=== PATIENT | male | born 1965 | race American Indian/Alaskan Native ===

== ENCOUNTER 2018-04-14 18:47 | Emergency (ER) | payer MEDICAID ==
[2018-04-14 18:50] VITALS: BMI 21.7
--- NOTE | 2018-04-14 18:57 | ED PDOC ---
Arrival/HPI - General Chief Complaint: Substance Abuse Time Seen by Provider: 04/14/18 18:49 Historian: Patient, EMS, Police - History of Present Illness Narrative History of Present Illness (Text): 04/14/18 18:54 53 year old male, no significant pmh, nkda, who presents to the emergency department via EMS and [employer] police s/p abnormal behavior and agitation. Police report that patient was agitated, dancing, screaming, and hitting himself in public which the bystander called for the police. Police arrived and found the patient agitated which the EMS dispatched, patient continued to scream and hit his head against the stretcher in the ambulance but stopped in the ER. Patient denies any fever, chills, chest pain, shortness of breath, nausea, vomiting, diarrhea, back pain, neck pain, headache, dizziness, suicidal/homicidal ideation or any other complaints. Time/Duration: Prior to Arrival Symptom Course: Unchanged Context: Street Past Medical History - Provider Review Nursing Documentation Reviewed: Yes - Infectious Disease Hx of Infectious Diseases: None - Musculoskeletal/Rheumatological Other/Comment: R knee arthroscopy - Psychiatric Hx Substance Use: Yes - Surgical History Other/Comment: R knee arthroscopy - Anesthesia Hx Anesthesia: Yes Hx Anesthesia Reactions: No Hx Malignant Hyperthermia: No Family/Social History - Physician Review Nursing Documentation Reviewed: Yes Family/Social History: Unknown Family HX Smoking Status: Unknown If Ever Smoked Hx Alcohol Use: No Hx Substance Use: Yes Substance used: heroine Allergies/Home Meds Allergies/Adverse Reactions: Allergies No Known Allergies Allergy (Verified 04/14/18 18:51) Review of Systems - Review of Systems Constitutional: absent: Fatigue, Fevers Eyes: absent: Vision Changes ENT: absent: Hearing Changes Respiratory: absent: SOB, Cough Cardiovascular: absent: Chest Pain Gastrointestinal: absent: Abdominal Pain, Nausea, Vomiting Musculoskeletal: absent: Arthralgias, Back Pain, Neck Pain, Myalgias Skin: absent: Rash, Pruritis Neurological: absent: Headache, Dizziness Psychiatric: Other (+agitation). absent: Anxiety, Depression, Suicidal Ideation Physical Exam Vital Signs Temp Pulse Resp BP Pulse Ox 04/14/18 19:20 68 16 142/58 L 99 04/14/18 19:15 98.1 F - Systems Exam Head: Present: Atraumatic, Normocephalic, Other (no facial bony tenderness or swelling. ). No: Tenderness, Contusion, Swelling, Ecchymosis, Abrasion, Laceration Pupils: Present: PERRL Extroacular Muscles: Present: EOMI Conjunctiva: Present: Normal Ears: Present: NORMAL TM, Normal Canal. No: Erythema Mouth: Present: Moist Mucous Membranes Pharnyx: Present: Normal. No: ERYTHEMA, EXUDATE, TONSILS ENLARGED Nose (External): Present: Atraumatic. No: Abrasion, Contusion, Laceration Nose (Internal): Present: Normal Inspection, No Active Bleeding. No: Rhinorrhea , Septal Hematoma, Epistaxis Neck: Present: Normal Range of Motion, Trachea Midline. No: Meningeal Signs, MIDLINE TENDERNESS, Paraspinal Tenderness, Lymphadenopathy Respiratory/Chest: Present: Clear to Auscultation, Good Air Exchange. No: Respiratory Distress, Accessory Muscle Use Cardiovascular: Present: Regular Rate and Rhythm, Normal S1, S2. No: Murmurs Abdomen: No: Tenderness, Distention, Peritoneal Signs, Rebound, Guarding Back: Present: Normal Inspection. No: Midline Tenderness, Paraspinal Tenderness Upper Extremity: Present: Normal Inspection, Normal ROM, NORMAL PULSES, Capillary Refill < 2s, Norm 2-Pt Discrimination. No: Cyanosis, Edema, Deformity Lower Extremity: Present: Normal Inspection, NORMAL PULSES, Normal ROM, Capillary Refill < 2 s. No: Edema, Deformity Neurological: Present: GCS=15, CN II-XII Intact, Speech Normal, Motor Func Grossly Intact, Memory Normal Skin: Present: Warm, Dry, Normal Color. No: Rashes Psychiatric: Present: Alert, Oriented x 3, Normal Insight, Normal Concentration Medical Decision Making ED Course and Treatment: 04/14/18 18:57 Differentia: ICH vs. Electrolyte imbalance vs. Intoxication vs. Psychosis -Labs/UA/UDS -CT head -Restrains (soft) as he is flight risk and not medically clear yet. -Observe and reassess 04/14/18 20:08 -CT Head show no acute findings -Labs are non-significant except Mg 1.6 (Mg 1gm IV ordred), BUN 24 (fluid ordered) -UA show mild UTI -Alcohol within normal limit -UDS show +opiate and +cocaine -Case discussed with Dr. Downey, agreed this patient needs psychiatric evaluation and can't sign out AMA -Pt. is medically clear and stable for the psychiatric evaluation -PES paged 04/14/18 22:00 -Pt. evaluated by the PES Alex, discussed the case with the psychiatrist laborer prestressed concrete. As per PES screener and psychiatric department, pt. is psychiatrically clear. -Pt. is calmed now, not agitated, effect of the cocaine stimulant effect appear to be overed, no signs of withdrawal. -Discharge home with macrobid, education on avoid using cocaine or any other drug in pubic, return to the ER for any new or worsening signs or symptoms. - Lab Interpretations Lab Results: 04/14/18 19:12 04/14/18 19:12 Lab Results 04/14/18 19:12: Alcohol, Quantitative < 10 04/14/18 19:12: Salicylates < 1 L, Acetaminophen < 10.0 L 04/14/18 19:12: Urine Opiates Screen Positive H, Urine Methadone Screen Negative , Ur Barbiturates Screen Negative, Ur Phencyclidine Scrn No result, Ur Amphetamines Screen Negative, U Benzodiazepines Scrn Negative, U Oth Cocaine Metabols Positive H, U Cannabinoids Screen Negative 04/14/18 19:12: Sodium 147, Potassium 4.3, Chloride 106, Carbon Dioxide 31, Anion Gap 14, BUN 24 H, Creatinine 1.3, Est GFR ( Amer) > 60, Est GFR ( Non-Af Amer) 58, Random Glucose 87, Calcium 9.1, Magnesium 1.6 L, Total Bilirubin 0.4, AST 26, ALT 31, Alkaline Phosphatase 46, Total Creatine Kinase 247 H, CK-MB (CK-2) 2.6, CK-MB (CK-2) % Cancelled, Total Protein 7.0, Albumin 4.0, Globulin 3.0, Albumin/Globulin Ratio 1.3 04/14/18 19:12: Urine Color Light yellow, Urine Appearance Clear, Urine pH 6.0, Ur Specific [place] >= 1.030, Urine Protein 30 H, Urine Glucose (UA) Negative, Urine Ketones Trace H, Urine Blood Negative, Urine Nitrate Negative, Urine Bilirubin Negative, Urine Urobilinogen 0.2, Ur Leukocyte Esterase Small H, Urine RBC 0 - 2, Urine WBC 2 - 5, Ur Epithelial Cells None, Urine Bacteria Trace 04/14/18 19:12: WBC 6.7, RBC 3.49 L, Hgb 11.0 L, Hct 34.0 L, MCV 97.4, MCH 31.5 , MCHC 32.4, RDW 13.9, Plt Count 191, MPV 10.4, Gran % 53.5, Lymph % (Auto) 35.0 , [place] % (Auto) 9.5 H, Eos % (Auto) 1.5, Baso % (Auto) 0.5, Gran # 3.56, Lymph # (Auto) 2.3, [place] # (Auto) 0.6, Eos # (Auto) 0.1, Baso # (Auto) 0.03 04/14/18 19:09: POC Glucose (mg/dL) 80 - RAD Interpretation Radiology Orders: 04/14/18 18:58 HEAD W/O CONTRAST [CT] Stat FINDINGS: Brain: No intracranial hemorrhage. No significant white matter disease. No evidence of evolved territorial infarct. No mass effect or midline shift. Ventricles: Unremarkable. No ventriculomegaly. Bones/joints: No acute osseous abnormality. Soft tissues: No soft tissue swelling. Sinuses: Unremarkable as visualized. No acute sinusitis. Mastoid air cells: Mastoid air cells are well-aerated. IMPRESSION: No acute findings. Thank you for allowing us to participate in the care of your patient. Dictated and Authenticated by: Christopher Minaya MD 04/14/2018 8:05 PM Eastern Time ([place] & [place]) Kst Operator: Radiologist - Medication Orders Current Medication Orders: Discontinued Medications Magnesium Sulfate/Dextrose (Magnesium Sulfate 1 Gm/100 Ml D5w) 1 gm in 100 mls @ 100 mls/hr IVPB ONCE ONE Stop: 04/14/18 21:06 Last Admin: 04/14/18 21:31 Dose: Not Given Non-Admin Reason: Patient Refused - PA / RISK MODELER / Resident Statement MD/DO has reviewed & agrees with the documentation as recorded. - Scribe Statement The provider has reviewed the documentation as recorded by the Scribbailey Turner All medical record entries made by the Scribe were at my direction and personally dictated by me. I have reviewed the chart and agree that the record accurately reflects my personal performance of the history, physical exam, medical decision making, and the department course for this patient. I have also personally directed, reviewed, and agree with the discharge instructions and disposition. Disposition/Present on Arrival - Present on Arrival Any Indicators Present on Arrival: No History of DVT/PE: No History of Uncontrolled Diabetes: No Urinary Catheter: No History of Decub. Ulcer: No History Surgical Site Infection Following: None - Disposition Have Diagnosis and Disposition been Completed?: Yes Diagnosis: Hypomagnesemia, Dehydration, Agitation, Drug abuse, UTI (urinary tract infection) Disposition: HOME/ ROUTINE Disposition Time: 22:00 Patient Plan: Discharge Patient Problems: Current Active Problems Problem Status Onset Agitation Acute Dehydration Acute Drug abuse Acute Hypomagnesemia Acute UTI (urinary tract infection) Acute Condition: IMPROVED Additional Instructions: -Discharge home with macrobid, education on avoid using cocaine or any other drug in pubic, return to the ER for any new or worsening signs or symptoms. Prescriptions: Nitrofurantoin Macrocrystals [Macrobid] 100 mg PO BID #14 cap Referrals: Christian Marlow MD [Primary Care Provider] - Follow up with primary [facility] [Outside] - Follow up with primary Forms: WORK NOTE
[2018-04-14 19:40] LABS: BASO # 0.03 K/mm3 (0.0-2.0); BASO % 0.5 % (0.0-3.0); EOS # 0.1 (0.0-0.7); EOS % 1.5 % (1.5-5.0); GRAN # 3.56 (1.4-6.5); GRAN % 53.5 % (50.0-68.0); LYMPH # 2.3 (1.2-3.4); MEAN CELL VOLUME 97.4 fl (80.0-105.0); MEAN CORPUSCULAR HEMOGLOBIN 31.5 pg (25.0-35.0); MEAN CORPUSCULAR HGB CONC 32.4 g/dl (31.0-37.0); MEAN PLATELET VOLUME 10.4 fl (7.0-11.0); MONO # 0.6 (0.1-0.6); MONO % 9.5 % (1.0-6.0); RBC 3.49 10^6/uL (3.5-6.1); RED CELL DISTRIBUTION WIDTH 13.9 % (11.5-14.5); WHITE BLOOD COUNT 6.7 10^3/ul (4.5-11.0)
[2018-04-14 19:44] LABS: URINE APPEARANCE CLEAR (CLEAR); URINE BILIRUBIN NEGATIVE (NEGATIVE); URINE BLOOD NEGATIVE (NEGATIVE); URINE COLOR LIGHT YELLOW (YELLOW); URINE GLUCOSE (UA) NEGATIVE (NEGATIVE); URINE LEUKOCYTE ESTERASE SMALL Leu/uL (NEGATIVE); URINE PROTEIN 30 mg/dL (<30 mg/dL); URINE UROBILINOGEN 0.2 E.U./dL (<1 E.U./dL)
[2018-04-14 19:52] LABS: URINE BACTERIA TRACE (NEG); URINE RBC 0 - 2 /hpf (0-2)
[2018-04-14 19:55] LABS: ALB/GLOB RATIO 1.3 (1.1-1.8); ALT/SGPT 31 U/L (7-56); AST/SGOT 26 U/L (17-59); BLOOD UREA NITROGEN 24 mg/dL (7-21); CALCIUM 9.1 mg/dL (8.4-10.5); GFR AFRICAN-AMERICAN > 60; GFR NON-AFRICAN AMERICAN 58
[2018-04-14 19:57] LABS: ACETAMINOPHEN < 10.0 ug/ml (10.0-20.0); SALICYLATE < 1 mg/dL (2.0-20.0)
[2018-04-14 20:05] LABS: BARBITURATES, UR NEGATIVE (NEGATIVE)
[2018-04-14] MEDS ORDERED: Magnesium Sulfate 1 gm in D5W 1 GM/100 ML BAG IVPB ONE (20:07)
[2018-04-14 20:12] LABS: CK-MB 2.6 ng/mL (0.0-3.6)
[2018-04-14 20:24] LABS: BENZODIAZEPINES, UR NEGATIVE (NEGATIVE); OPIATES, UR POSITIVE (NEGATIVE)
[2018-04-14 21:41] VITALS: RESP 16; O2SAT 99
[2018-04-14 21:44] VITALS: TEMP 98.1
[2018-04-14 23:25] VITALS: BP 140/66
[2018-04-14 23:26] VITALS: PULSE 72
--- NOTE | 2018-04-15 08:27 | CT ---
Date of service: 04/14/2018 PROCEDURE: CT HEAD WITHOUT CONTRAST. HISTORY: agitation, behavior change, fall? COMPARISON: None available. TECHNIQUE: Axial computed tomography images were obtained through the head/brain without intravenous contrast. Coronal and sagittal reconstructed images. Radiation dose: Total exam DLP = 1007.59 mGy-cm. This CT exam was performed using one or more of the following dose reduction techniques: Automated exposure control, adjustment of the mA and/or kV according to patient size, and/or use of iterative reconstruction technique. FINDINGS: HEMORRHAGE: No intracranial hemorrhage. BRAIN: No mass effect or edema. No atrophy or chronic microvascular ischemic changes. VENTRICLES: Unremarkable. No hydrocephalus. CALVARIUM: Unremarkable. PARANASAL SINUSES: Unremarkable as visualized. No significant inflammatory changes. MASTOID AIR CELLS: Unremarkable as visualized. No inflammatory changes. OTHER FINDINGS: None. IMPRESSION: No acute intracranial abnormalities. No significant findings to account for the clinical presentation. Concordant results (preliminary interpretation) provided by [employer]. Procedure Completed: 19:47 Preliminary ([employer]) Report: Dictated and Authenticated: 20:06. Final Interpretation: 08:25. April 15, 2018.
== END 2018-04-14 22:00 | disposition home or self-care (01) ==
LOC: MERGE 18:47 → ED 18:47
DX: E83.42 Hypomagnesemia (principal); E86.0 Dehydration; N39.0 Urinary tract infection, site not specified; R45.1 Restlessness and agitation; F19.10 Other psychoactive substance abuse, uncomplicated

== ENCOUNTER 2018-04-15 00:36 | Emergency (ER) | payer MEDICAID ==
--- NOTE | 2018-04-15 01:39 | ED PDOC ---
Arrival/HPI - General Chief Complaint: Substance Abuse Time Seen by Provider: 04/15/18 00:48 Historian: EMS - History of Present Illness Narrative History of Present Illness (Text): 04/15/18 01:36 A 53 year old male, with no known past medical history, is brought into the emergency department via EMS for [place] evaluation [place]. Patient was recently evaluated in the emergency department earlier this evening for substance abuse and was evaluated by PES. He was discharged by PES after he was medically cleared. Patient in emergency department is uncooperative, combative, acting irrationally, and attempting to leave. He is under alcohol or drug use. HPI/ROS limited due to substance abuse. Time/Duration: Prior to Arrival, 1-3 hours Symptom Course: Unchanged Activities at Onset: Rest, Light Context: Street ([place]) Past Medical History - Provider Review Nursing Documentation Reviewed: Yes - Infectious Disease Hx of Infectious Diseases: None - Cardiac Hx Cardiac Disorders: No Hx Hypertension: No - Pulmonary Hx Tuberculosis: No - Neurological HX Cerebrovascular Accident: No Hx Seizures: No - Hematological/Oncological Hx Cancer: No - Musculoskeletal/Rheumatological Other/Comment: R knee arthroscopy - Genitourinary/Gynecological Hx Sexually Transmitted Diseases: No - Psychiatric Hx Substance Use: Yes - Surgical History Other/Comment: R knee arthroscopy - Anesthesia Hx Anesthesia: Yes Hx Anesthesia Reactions: No Hx Malignant Hyperthermia: No Family/Social History - Physician Review Nursing Documentation Reviewed: Yes Family/Social History: No Known Family HX Smoking Status: Unknown If Ever Smoked Hx Alcohol Use: No Hx Substance Use: Yes Substance used: heroine Allergies/Home Meds Allergies/Adverse Reactions: Allergies No Known Allergies Allergy (Verified 04/14/18 18:51) Home Medications: Home Meds Medication Instructions Recorded Confirmed Unobtainable 04/15/18 04/15/18 Review of Systems - Physician Review All systems were reviewed & negative as marked: Yes - Review of Systems Systems not reviewed;Unavailable: Intoxicated Physical Exam - Physical Exam Physical Exam Limitations: Intoxication Vital Signs Temp Pulse Resp BP Pulse Ox 04/15/18 06:34 68 18 106/69 99 04/15/18 02:45 69 17 112/72 100 04/15/18 01:45 98.6 F 83 18 109/66 97 Temperature: Afebrile Blood Pressure: Normal Pulse: Regular Respiratory Rate: Normal Appearance: Positive for: Non-Toxic, Unkept Pain Distress: None Mental Status: Positive for: Agitated - Systems Exam Head: Present: Atraumatic, Normocephalic Pupils: Present: PERRL Ears: Present: Normal, NORMAL TM Pharnyx: Present: Normal Neck: Present: Normal Range of Motion Respiratory/Chest: Present: Clear to Auscultation, Good Air Exchange. No: Respiratory Distress, Accessory Muscle Use Cardiovascular: Present: Regular Rate and Rhythm, Normal S1, S2. No: Murmurs Abdomen: No: Tenderness, Distention, Peritoneal Signs Upper Extremity: Present: Normal Inspection. No: Cyanosis, Edema Lower Extremity: Present: Normal Inspection. No: Edema Neurological: Present: Motor Func Grossly Intact, Normal Sensory Function Psychiatric: Present: Alert, Agitated Medical Decision Making ED Course and Treatment: 04/15/18 01:39 Impression: A 53 year old male is brought into the emergency department for further evaluation [place]. Plan: -- Labs -- Ativan and Haldol -- Reassess and disposition Progress Notes: 04/15/18 01:40: Patient is combative and attempting to leave. 4 point restraints , Ativan and Haldol ordered. 04/15/18 05:57: Patient resting comfortably in no acute distress. 04/15/18 07:00 Case endorsed to /pending PES evaluation/final disposition - Lab Interpretations Lab Results: 04/15/18 02:30 04/15/18 02:30 Lab Results 04/15/18 02:30: Urine Opiates Screen Positive H, Urine Methadone Screen Negative , Ur Barbiturates Screen Negative, Ur Phencyclidine Scrn Negative, Ur Amphetamines Screen Negative, U Benzodiazepines Scrn Negative, U Oth Cocaine Metabols Positive H, U Cannabinoids Screen Negative 04/15/18 02:30: WBC 7.9, RBC 3.19 L, Hgb 10.0 L, Hct 30.8 L, MCV 96.6, MCH 31.3 , MCHC 32.5, RDW 13.7, Plt Count 168, MPV 10.1 04/15/18 02:30: Alcohol, Quantitative < 10 04/15/18 02:30: Sodium 143, Potassium 4.1, Chloride 109 H, Carbon Dioxide 28, Anion Gap 11, BUN 25 H, Creatinine 1.2, Est GFR ( Amer) > 60, Est GFR ( Non-Af Amer) > 60, Random Glucose 78, Calcium 8.8, Total Bilirubin 0.2, AST 46, ALT 40, Alkaline Phosphatase 50, Total Protein 6.0, Albumin 3.3, Globulin 2.7, Albumin/Globulin Ratio 1.2 I have reviewed the lab results: Yes - Medication Orders Current Medication Orders: Discontinued Medications Haloperidol Lactate (Haldol) 5 mg IM STAT STA PRN Reason: Protocol Stop: 04/15/18 01:39 Last Admin: 04/15/18 01:41 Dose: 5 mg IM Administration Charges Document 04/15/18 01:41 CNR (Rec: 04/15/18 01:41 CNR [id number]) Injection Site MAR Injection Site Right Deltoid Charges for Administration # of IM Administrations 1 Lorazepam (Ativan) 2 mg IM ONCE ONE Stop: 04/15/18 01:38 Last Admin: 04/15/18 01:41 Dose: 2 mg IM Administration Charges Document 04/15/18 01:41 CNR (Rec: 04/15/18 01:41 CNR [id number]) Injection Site MAR Injection Site Right Deltoid Charges for Administration # of IM Administrations 1 - Scribe Statement The provider has reviewed the documentation as recorded by the Jannette Lee Provider Scribe Attestation: All medical record entries made by the Scribe were at my direction and personally dictated by me. I have reviewed the chart and agree that the record accurately reflects my personal performance of the history, physical exam, medical decision making, and the department course for this patient. I have also personally directed, reviewed, and agree with the discharge instructions and disposition. Disposition/Present on Arrival - Present on Arrival Any Indicators Present on Arrival: No History of DVT/PE: No History of Uncontrolled Diabetes: No Urinary Catheter: No History of Decub. Ulcer: No History Surgical Site Infection Following: None - Disposition Have Diagnosis and Disposition been Completed?: No Diagnosis: Drug abuse, Aggressive behavior Disposition Time: 07:00 Condition: STABLE Forms: [employer] (Croatian)
[2018-04-15 02:37] VITALS: RESP 18
[2018-04-15 02:45] LABS: MEAN CELL VOLUME 96.6 fl (80.0-105.0); MEAN CORPUSCULAR HEMOGLOBIN 31.3 pg (25.0-35.0); MEAN CORPUSCULAR HGB CONC 32.5 g/dl (31.0-37.0); MEAN PLATELET VOLUME 10.1 fl (7.0-11.0); RBC 3.19 10^6/uL (3.5-6.1); RED CELL DISTRIBUTION WIDTH 13.7 % (11.5-14.5); WHITE BLOOD COUNT 7.9 10^3/ul (4.5-11.0)
[2018-04-15 03:23] LABS: ALB/GLOB RATIO 1.2 (1.1-1.8); ALBUMIN 3.3 g/dL (3.0-4.8); ALT/SGPT 40 U/L (7-56); AST/SGOT 46 U/L (17-59); BLOOD UREA NITROGEN 25 mg/dL (7-21); CALCIUM 8.8 mg/dL (8.4-10.5); GFR AFRICAN-AMERICAN > 60; GFR NON-AFRICAN AMERICAN > 60
[2018-04-15 03:24] LABS: BARBITURATES, UR NEGATIVE (NEGATIVE); BENZODIAZEPINES, UR NEGATIVE (NEGATIVE); OPIATES, UR POSITIVE (NEGATIVE); PHENCYCLIDINE, UR NEGATIVE (NEGATIVE)
[2018-04-15 08:19] VITALS: BMI 25.1
[2018-04-15 12:15] VITALS: BP 130/99; PULSE 59; TEMP 98.1
--- NOTE | 2018-04-15 12:15 | ED PDOC ---
Physical Exam - Physical Exam Narrative Physical Exam (Text): Signed out at change of shift pending sobriety. At 12pm, patient awake, alert, steady gait, reasonable answers to questions, wishes to go home. Denies HI/SI/ hallucinations. States he took cocaine yesterday. Vital Signs Temp Pulse Resp BP Pulse Ox 04/15/18 10:00 57 L 18 120/77 100 04/15/18 08:00 98.6 F 78 18 110/79 99 04/15/18 06:34 68 18 106/69 99 04/15/18 02:45 69 17 112/72 100 04/15/18 01:45 98.6 F 83 18 109/66 97 Medical Decision Making - Lab Interpretations Lab Results: 04/15/18 02:30 04/15/18 02:30 Lab Results 04/15/18 02:30: Urine Opiates Screen Positive H, Urine Methadone Screen Negative , Ur Barbiturates Screen Negative, Ur Phencyclidine Scrn Negative, Ur Amphetamines Screen Negative, U Benzodiazepines Scrn Negative, U Oth Cocaine Metabols Positive H, U Cannabinoids Screen Negative 04/15/18 02:30: WBC 7.9, RBC 3.19 L, Hgb 10.0 L, Hct 30.8 L, MCV 96.6, MCH 31.3 , MCHC 32.5, RDW 13.7, Plt Count 168, MPV 10.1 04/15/18 02:30: Alcohol, Quantitative < 10 04/15/18 02:30: Sodium 143, Potassium 4.1, Chloride 109 H, Carbon Dioxide 28, Anion Gap 11, BUN 25 H, Creatinine 1.2, Est GFR ( Amer) > 60, Est GFR ( Non-Af Amer) > 60, Random Glucose 78, Calcium 8.8, Total Bilirubin 0.2, AST 46, ALT 40, Alkaline Phosphatase 50, Total Protein 6.0, Albumin 3.3, Globulin 2.7, Albumin/Globulin Ratio 1.2 - Medication Orders Current Medication Orders: Discontinued Medications Haloperidol Lactate (Haldol) 5 mg IM STAT STA PRN Reason: Protocol Stop: 04/15/18 01:39 Last Admin: 04/15/18 01:41 Dose: 5 mg IM Administration Charges Document 04/15/18 01:41 CNR (Rec: 04/15/18 01:41 CNR [id number]) Injection Site MAR Injection Site Right Deltoid Charges for Administration # of IM Administrations 1 Lorazepam (Ativan) 2 mg IM ONCE ONE Stop: 04/15/18 01:38 Last Admin: 04/15/18 01:41 Dose: 2 mg IM Administration Charges Document 04/15/18 01:41 CNR (Rec: 04/15/18 01:41 CNR [id number]) Injection Site MAR Injection Site Right Deltoid Charges for Administration # of IM Administrations 1 Disposition/Present on Arrival - Present on Arrival Any Indicators Present on Arrival: No History of DVT/PE: No History of Uncontrolled Diabetes: No Urinary Catheter: No History of Decub. Ulcer: No History Surgical Site Infection Following: None - Disposition Have Diagnosis and Disposition been Completed?: Yes Diagnosis: Drug abuse, Aggressive behavior Disposition: HOME/ ROUTINE Disposition Time: 12:14 Patient Plan: Discharge Patient Problems: Current Active Problems Problem Status Onset Aggressive behavior Acute Drug abuse Acute Condition: STABLE Discharge Instructions (ExitCare): Cocaine Use Disorder Forms: [employer] (Icelandic)
[2018-04-15 12:25] VITALS: O2SAT 98
== END 2018-04-15 13:29 | disposition home or self-care (01) ==
LOC: ED 00:36 → MERGE 00:36 → ED 13:29
DX: F19.10 Other psychoactive substance abuse, uncomplicated (principal)
CPT/HCPCS: 80053; 80320; 80324; 80345; 80346; 80349; 80353; 80358; 80361; 83992; 85027; 96372; 99285; J1630; J2060